=== PATIENT | female | born 1995 | race Caucasian/White ===

== ENCOUNTER 2017-03-02 22:39 | Emergency (ER) | payer OTHER ==
[~2017-03-02] VITALS: Ht 157.5 cm; Wt 63.5 kg
[~2017-03-02 22:39] MED LIST: N
[2017-03-03] MEDS ORDERED: PROBIOTIC & AC1 EACH PO (02:32)
[2017-03-03] MEDS ORDERED: ZANTAC300 MG PO (02:32)
[2017-03-03] MEDS ORDERED: CIPRO500 MG PO (02:32)
[2017-03-03] MEDS ORDERED: DICY20TA PO (02:32)
== END 2017-03-03 02:28 | disposition home or self-care (01) ==
LOC: ER 22:39
DX: K52.9 Noninfective gastroenteritis and colitis, unspecified (principal); A04.9 Bacterial intestinal infection, unspecified

== ENCOUNTER → 2022-05-21 | Outpatient (CLI) | payer OTHER ==
[~2022-05-21] MED LIST changes: +CIPRO500 MG PO; +DICY20TA PO; +PROBIOTIC & AC1 EACH PO; +ZANTAC300 MG PO
== END | disposition home or self-care (01) ==
LOC: RX STUDY 09:22
DX: N80.9 Endometriosis, unspecified (principal); N84.0 Polyp of corpus uteri; D25.9 Leiomyoma of uterus, unspecified

== ENCOUNTER 2024-12-11 11:15 | Emergency (ER) | payer OTHER ==
[~2024-12-11] VITALS: Ht 157.5 cm; Wt 98.9 kg
[2024-12-11] MEDS ORDERED: FAMOTIDINE/PF 20 MG/2 ML VIAL ONE (12:13)
[2024-12-11] MEDS ORDERED: ONDANSETRON HCL 2 MG/ML VIAL ONE (12:13)
[2024-12-11] MEDS ORDERED: ONDANSETRON HCL 2 MG/ML VIAL IV ONE (12:15)
[2024-12-11] MEDS ORDERED: FAMOTIDINE/PF 20 MG/2 ML VIAL IV ONE (12:15)
[2024-12-11] MEDS ORDERED: 0.9 % SODIUM CHLORIDE 1,000 ML IV SCH (12:15)
[2024-12-11 12:40] LABS: BASO % 0.1 % (0.1-1.2); EOS # 0.03 (0.04-0.54); EOS % 0.4 % (0.7-7.0); LYMPH # 0.74 (1.18-3.74); LYMPH % 10.2 % (19.3-53.1); MEAN PLATELET VOLUME 10.20 fl (9.4-12.4); MONO # 0.30 (0.24-0.82); MONO % 4.1 % (4.7-12.5); NEUT # 6.15 (1.56-6.13); NEUT % 85.1 % (34.0-71.1); RED CELL DISTRIBUTION WIDTH 13.2 % (11.6-14.4)
[2024-12-11 13:00] LABS: ERYTHROCYTE SEDIMENTATION RATE 4 mm/hr (0-20)
[2024-12-11 13:13] LABS: ALT/SGPT 29.0 U/L (12-78); AST/SGOT 12.0 U/L (15-37); BILIRUBIN TOTAL 1.11 mg/dL (0.3-1.2); BUN CREA RATIO 20.0 (7.0-25.0); CREATININE SERUM 0.64 mg/dL (0.55-1.02); GFR 111.31; GLOBULINA 3.4 G/DL (2.4-3.5); GLUCOSE FASTING 101.0 mg/dL (65-100); OSMOLALITY SERUM 278.0 MOSM/KG (275-295)
[2024-12-11 13:38] LABS: COVID-19 AG NEGATIVE (NEGATIVE)
[2024-12-11 15:13] LABS: URINE APPEARANCE Clear; URINE BILIRRUBIN Small (NEGATIVE); URINE BLOOD Negative; URINE COLOR Orange; URINE GLUCOSE Negative (NEGATIVE); URINE KETONE 15 (NEGATIVE); URINE LEUKOCYTE Trace; URINE NITRATE Negative; URINE PROTEIN 30 (NEGATIVE); URINE UROBILINOGEN 1.0 E.U./dl
[2024-12-11 15:17] LABS: URINE BACTERIA 56.3 uL (0.0-1933); URINE EPITHELIAL CELLS 28.9 uL (0.0-38.8); URINE RBC 10.9 uL (0.0-20.8); URINE WBC 24.6 uL (0.0-23.2)
[2024-12-11 15:58] LABS: URINE CAST 0.43 uL (0.0-1.40); URINE MUCUS HEAVY
[2024-12-11] MEDS ORDERED: ACETAMINOPHEN 500 MG GEL..CAP PO ONE ×2 (16:00→16:12)
[2024-12-11] MEDS ORDERED: PEPCID AC20 MG PO (16:26)
[2024-12-11] MEDS ORDERED: INTESTINEX680 M1 PO (16:26)
[2024-12-11] MEDS ORDERED: ZITHROMAX TRI-500 MG PO (16:26)
== END 2024-12-11 17:22 | disposition home or self-care (01) ==
LOC: ER 11:16
PROVIDERS: Student in an Organized Health Care Education/Training Program
DX: A09 Infectious gastroenteritis and colitis, unspecified (principal); N39.0 Urinary tract infection, site not specified; Z20.822 Contact with and (suspected) exposure to COVID-19